=== PATIENT | female | born 1990 | race Caucasian/White ===

== ENCOUNTER 2023-03-06 15:47 | Outpatient (CLI) | payer OTHER, SELFPAY | END 2023-03-06 15:48 | disposition home or self-care (01) | PROVIDERS: Visit Provider Physician Assistant | DX: Z34.91 Encounter for supervision of normal pregnancy, unspecified, first trimester (principal); Z3A.10 10 weeks gestation of pregnancy | CPT/HCPCS: 86787; 87086 ==

== ENCOUNTER 2023-03-14 09:55 | Outpatient (CLI) | payer OTHER, SELFPAY | END 2023-03-14 09:56 | disposition home or self-care (01) | LOC: NFLDREF 03-15 04:35 | PROVIDERS: Visit Provider Physician Assistant | DX: Z34.90 Encounter for supervision of normal pregnancy, unspecified, unspecified trimester (principal) | CPT/HCPCS: 86850; 86900; 86901 ==

== ENCOUNTER 2023-05-16 12:17 | Outpatient (CLI) | payer OTHER, SELFPAY ==
--- NOTE | 2023-05-16 12:15 | CRLHL7_ITS ---
For Patients: As a result of the Century Cures Act, medical imaging exams and procedure reports are released immediately into your electronic medical record. You may view this report before your referring provider. If you have questions, please contact your health care provider. INDICATION: anatomy. Twenty week 2 day gestation by clinical dates TECHNIQUE: Real time domínguez scale imaging of the fetus was performed. COMPARISON: None FINDINGS: There is a mendez gestation in variable presentation. Amniotic fluid is normal . Single deepest vertical pocket: 5.9 cm. heart rate of 157 beats per minute. Cervical length is 4.0 cm. Placenta is anterior. /ANATOMIC SURVEY (Normal, Abnormal or Unobserved) Lateral ventricles: Normal Posterior fossa: Normal Face: Normal Profile: Normal Spine: Suboptimally visualized Four chamber heart: Suboptimally visualized Diaphragm: Normal Stomach: Normal Kidneys: Normal Bladder: Normal Cord insertion: Normal Three vessel cord: Normal Four extremities: Normal BIOMETRY DATA: BPD is 4.6 cm 19 weeks 6 days. Head circumference is 18.0 cm 20 weeks 3 days. Abdominal circumference is 15.0 cm 20 weeks to days. Femur length is 3.5 cm 20 weeks 6 days. Head/abdomen ratio is 1.19. Estimated weight is 360 grams. Percentile 60%. Gestational age by ultrasound 20 weeks 2 days. Estimated date of delivery by ultrasound 10/01/2023. IMPRESSION: 1. Measurements are consistent with dates. 2. Heart and spine suboptimally visualized. Recommend follow-up in 2-3 weeks. 3. Otherwise normal anatomic survey. Dictated by Pool Rosenberg MD @ 05/16/2023 3:25:50 PM (Electronically Signed)
== END 2023-05-16 12:18 | disposition home or self-care (01) ==
LOC: US 12:18
PROVIDERS: Visit Provider Obstetrics & Gynecology
DX: Z34.92 Encounter for supervision of normal pregnancy, unspecified, second trimester (principal); Z3A.20 20 weeks gestation of pregnancy
CPT/HCPCS: 76805; 81513; 87481; 87661

== ENCOUNTER 2023-05-23 11:30 | Outpatient (RCR) | payer OTHER, SELFPAY | END 2023-08-29 10:05 | disposition home or self-care (01) | PROVIDERS: Visit Provider Physician Assistant | DX: N81.9 Female genital prolapse, unspecified (principal); Z51.89 Encounter for other specified aftercare | CPT/HCPCS: 97110; 97112; 97161; 97535 ==

== ENCOUNTER 2023-05-25 14:30 | Outpatient (CLI) | payer OTHER, SELFPAY | END 2023-05-25 14:31 | disposition home or self-care (01) | LOC: NFLDREF 05-29 11:32 | PROVIDERS: Visit Provider Obstetrics & Gynecology | DX: N39.0 Urinary tract infection, site not specified (principal) | CPT/HCPCS: 87086 ==

== ENCOUNTER 2023-05-30 12:58 | Outpatient (CLI) | payer OTHER, SELFPAY ==
--- NOTE | 2023-05-30 13:00 | CRLHL7_ITS ---
For Patients: As a result of the Century Cures Act, medical imaging exams and procedure reports are released immediately into your electronic medical record. You may view this report before your referring provider. If you have questions, please contact your health care provider. INDICATION: f/u images of spine and heart views. COMPARISON: 05/16/2023 TECHNIQUE: Real time domínguez scale imaging of the fetus was performed. FINDINGS: Sonographic imaging demonstrates a single living intrauterine gestation. Fetus demonstrates a regular cardiac rate of 152 beats per minute. Fetus has a meagan breech position. The placenta lies anteriorly. Amniotic fluid volume appears normal. Single deepest vertical pocket: 6.4 cm. The cervical, thoracic and lumbar spine are well visualized and appear normal. There is a normal four-chamber heart view and the left and right ventricular outflow tracts appear normal. IMPRESSION: Normal spine and heart. Dictated by Carlos Quiros MD @ 05/30/2023 1:52:59 PM (Electronically Signed)
== END 2023-05-30 12:59 | disposition home or self-care (01) ==
LOC: US 12:59
PROVIDERS: Visit Provider Obstetrics & Gynecology
DX: O35.FXX0 Maternal care for other (suspected) fetal abnormality and damage, fetal musculoskeletal anomalies of trunk, not applicable or unspecified (principal); O36.8390 Maternal care for abnormalities of the fetal heart rate or rhythm, unspecified trimester, not applicable or unspecified
CPT/HCPCS: 76816

== ENCOUNTER 2023-07-11 11:18 | Outpatient (CLI) | payer OTHER, SELFPAY | END 2023-07-11 11:19 | disposition home or self-care (01) | LOC: NFLDREF 07-23 08:24 | PROVIDERS: Visit Provider Obstetrics & Gynecology | DX: Z34.93 Encounter for supervision of normal pregnancy, unspecified, third trimester (principal) | CPT/HCPCS: 86592 ==

== ENCOUNTER 2023-07-20 10:36 | Outpatient (CLI) | payer OTHER, SELFPAY | END 2023-07-20 10:37 | disposition home or self-care (01) | LOC: NFLDREF 10:37 | PROVIDERS: Visit Provider Obstetrics & Gynecology | DX: O26.893 Other specified pregnancy related conditions, third trimester (principal); N89.8 Other specified noninflammatory disorders of vagina; Z3A.29 29 weeks gestation of pregnancy | CPT/HCPCS: 87086 ==

== ENCOUNTER 2023-07-25 12:07 | Outpatient (CLI) | payer OTHER, SELFPAY ==
--- NOTE | 2023-07-25 12:15 | US_ITS ---
Patient: NORA COOLEY Facility:?[facility] Patient ID:?[id number] Site Patient ID:?[id number]. Site :?1990 Study:?US-OB Pelvis OB F/U GROWTH-07/25/2023 1:04:48 PM Ordering Physician:CLARI PARKER M.D. Final Report: INDICATION: Uterine size/date discrepancy. COMPARISON: Ob ultrasound May 16, 2023. Technique: Transabdominal OB ultrasound. Findings: Single viable intrauterine gestation of 30 weeks and 1 day duration with an expected date of delivery October 02, 2023. heart rate 173 beats per minute and regular. The estimated weight 1571 g at 42nd percentile. The largest amniotic fluid pocket measures 4.3 cm in depth. position is vertex. Placenta is anterior with no previa. BPD 7.4 cm, head circumference 28 cm and abdominal circumference 26.8 cm. Impression: 1. Single viable intrauterine gestation of 30 weeks and 1 day duration with an expected date of delivery 10/02/2023. 2. heart rate 173 beats per minute and regular. 3. Estimated weight 1571 g at the 42nd percentile. Dictated by Sherri Ruth MD @ 07/26/2023 8:18:35 AM Signed by:?Sherri Ruth MD @07/26/2023 8:18:35 AM (Electronic Signature)
== END 2023-07-25 12:08 | disposition home or self-care (01) ==
LOC: US 12:08
PROVIDERS: Visit Provider Obstetrics & Gynecology
DX: O26.843 Uterine size-date discrepancy, third trimester (principal); Z3A.30 30 weeks gestation of pregnancy
CPT/HCPCS: 76816

== ENCOUNTER 2023-09-05 11:24 | Outpatient (CLI) | payer OTHER, SELFPAY ==
[2023-09-06 15:30] LABS: Strep B DNA Probe Negative (Negative)
[2023-09-06 18:01] LABS: Strep B Susceptibility Needed? No
== END 2023-09-05 11:25 | disposition home or self-care (01) ==
LOC: NFLDREF 11:24
PROVIDERS: PCP Physician Assistant; Visit Provider Physician Assistant
DX: Z34.83 Encounter for supervision of other normal pregnancy, third trimester (principal)
CPT/HCPCS: 87081; 87653

== ENCOUNTER 2023-09-14 12:50 | Outpatient (CLI) | payer OTHER, SELFPAY ==
--- NOTE | 2023-09-14 13:00 | US_ITS ---
Patient: NORA COOLEY Facility:?[facility] Patient ID:?[id number] Site Patient ID:?[id number]. Site :?1990 Study:?US-OB Pelvis growth-09/14/2023 1:27:24 PM Ordering Physician:Keila Macedo Final Report: INDICATION: Uterine size and date discrepancy. TECHNIQUE: Ultrasound OB pelvis transabdominal. Real-time domínguez-scale imaging of the fetus was performed as well as color Doppler and spectral Doppler analysis of the umbilical artery. COMPARISON: July 25, 2023. FINDINGS: Single living intrauterine gestation. heart rate: 141 beats per minute. Presentation: Cephalic. Placenta: Anterior. Amniotic fluid deepest pocket: 6 cm. The following biometric measurements were obtained: Biparietal diameter: 35 weeks 4 days. Head circumference: 38 weeks 3 days. Abdominal circumference: 36 weeks 0 days. Femur length: 36 weeks 3 days. Ultrasound age: 36 weeks 4 days. FATOUMATA by US: October 08, 2023. EFW: 2919 Grams, 28th %. IMPRESSION.: Viable intrauterine . No abnormalities seen. Fetus is measuring at the 28th percentile by estimated weight. Dictated by Abraham Bone MD @ 09/16/2023 10:37:59 AM Signed by:?Abraham Bone MD @09/16/2023 10:37:59 AM (Electronic Signature)
== END 2023-09-14 12:51 | disposition home or self-care (01) ==
LOC: US 12:50
PROVIDERS: Visit Provider Obstetrics & Gynecology
DX: O26.843 Uterine size-date discrepancy, third trimester (principal); Z3A.36 36 weeks gestation of pregnancy
CPT/HCPCS: 76816

== ENCOUNTER 2023-10-02 07:04 | Inpatient (IN) | payer OTHER, SELFPAY ==
[2023-10-02] VITALS (34 sets, daily range): BP systolic 97–139; BP diastolic 51–88; PULSE 73–126; RESP 16–17; TEMP 36.5–36.8; O2SAT 98–100; BMI 42.7
--- OUTSIDE RECORDS SUMMARY | 2023-10-02 07:07 | XMS_ITS | Clinical Summary ---
Author Organization [facility] Address [address] [place] [address] Care Team Providers Care Engineering Test Mechanic Name Role Phone Elsewhere, Pcp Primary Care Provider Unavailabl e Source Comments Patient records contain information from all sites at [facility]. For routine questions regarding patient records, call [phone] during business hours, M-F 8:00 AM - 5:00 PM Central Time. Record requests for emergency care only can be directed to [phone] at any time.[facility] Allergies Active Allergy Reactions Criticality Noted Date Comments No Known Allergies Other (see comments) 011 Medications Medication Sig Dispensed Refills Start Date End Date Status fluticasone propionate (FLONASE) 50 mcg/actuation nasal spray Administer 2 sprays into each nostril daily. 16 g 11 12/03/2018 Active azelastine (ASTELIN) 137 mcg/spray (0.1 %) nasal spray Administer 2 sprays into each nostril 2 (two) times a day. Use in each nostril as directed 30 mL 11 12/03/2018 Active omeprazole (PriLOSEC) [address] capsule Take 1 capsule (40 mg total) by mouth every morning before breakfast. 30 capsule 11 01/06/2019 Active ferrous sulfate 325 mg (65 mg iron) DR tablet Take 1 tablet (65 mg of iron total) by mouth daily. 30 tablet 2 12/17/2019 Active Additional Information Patient not taking.Reported on 04/26/2020 norethindrone (MICRONOR) 0.35 mg tablet Take 1 tablet by mouth daily. 02/29/2020 Active omeprazole (PriLOSEC OTC) 20 mg EC tablet Take 1 tablet (20 mg total) by mouth daily. 30 tablet 5 03/11/2020 Active vgwyguk-Nq-ikic-FA 27 mg iron- 1 mg tablet Take 1 tablet by mouth daily. Active oxyCODONE (ROXICODONE) 5 mg/5 mL solutionIndication s:Prolonged Acute Pain/Traumatic Injury Take 5 mL (5 mg total) by mouth every 4 (four) hours as needed for severe pain or score 7-10 of 10 Indication: Prolonged Acute Pain/Traumatic Injury. Use only if pain not controlled despite use of tylenol and ibuprofen. 250 mL 03/22/2020 Active Additional Information Patient not taking.Reported on 04/26/2020 ibuprofen (ADVIL,MOTRIN) 100 mg/5 mL suspension Take 40 mL (800 mg total) by mouth every 6 (six) hours as needed for pain. Alternate with Ibuprofen and tylenol every 3 hours. 480 mL 3 03/30/2020 Active Additional Information Patient not taking.Reported on 04/26/2020 acetaminophen (TYLENOL) 160 mg/5 mL liquid Take 20 mL (640 mg total) by mouth every 6 (six) hours as needed for pain. Alternate with Ibuprofen and tylenol every 3 hours. 480 mL 3 03/30/2020 Active Additional Information Patient not taking.Reported on 04/26/2020 omeprazole (PriLOSEC) [address] capsule Take 1 capsule (20 mg total) by mouth daily. 30 capsule 11 11/10/2020 Active Active Problems Problem Noted Date Diagnosed Date Tonsillitis Chronic 03/11/2020 Overview: Added automatically from request for surgery [id number] Tonsillolithiasis 03/11/2020 Overview: Added automatically from request for surgery [id number] Tonsillitis Recurrent 03/11/2020 Overview: Added automatically from request for surgery [id number] Hypertrophy Tonsil 03/11/2020 Overview: Added automatically from request for surgery [id number] Obesity Body Mass Index 30-39.9 Adult 12/17/2019 False Labor At Or After 37 Completed Weeks Of Ge station 02/11/2018 Resolved Problems Problem Noted Date Diagnosed Date Resolved Date Hypertrophy Tonsil 04/02/2019 0 Overview: Added automatically from request for surgery [id number] Tonsillitis Chronic 04/02/2019 12/17/19 20 Overview: Added automatically from request for surgery [id number] Immunizations Name Administration Dates Next Due DTaP (Infanrix, [employer]edia) 07/24/1996,,01/22/1992,1991,1991 HepB, Unspecified 09/08/2003,05/15/2003,04/03/20 03 Influenza, Unspecified 01/04/2018,03/20/2014, MMR 01/06/1997,11/04/1992 Td (Adult), adsorbed 05/15/2003 Tdap 09/24/2019,11/20/2017 influenza vaccine quad (FLUZONE/FLUARIX) (6 months and older)(PF) 04/07/2019 Family History Medical History Relation Name Comments Breast cancer Aunt Maternal Hypertension Father Lung cancer Grandmother paternal previous smoker Relation Name Status Comments Aunt Maternal Father Grandmother paternal Social History Tobacco Use Types Packs/Day Years Used Date Smoking Tobacco: Never Smokeless Tobacco: Never Alcohol Use Standard Drinks/Week Comments No 0 (1 standard drink = 0.6 oz pur e alcohol) PHQ-2 Answer Date Recorded PHQ-2 Score 0 12/17/2019 Depression Answer Date Recor ded PHQ-9 Total Score (max 27) 2 12/16 Nutrition Answer Date Recorded Nutrition: EVOO Fat Source Unknown 06/30 Nutrition: Servings of Fruits/Vegetables per Day Not on file 06/30/2020 Dental Answer Date Recorded Dental: Regular Dentist Unknown 07/01/19 21 Sex and Gender Information Value Date Recorded Sex Assigned at Not on file Gender Identity Not on file Sexual Orientation Not on file Last Filed Vital Signs Vital Sign Reading Time Taken Comments Blood Pressure 133/83 03/22/2020 5:30 PM SCORER SINGLE Pulse 92 03/22/2020 5:45 PM SCORER SINGLE Temperature 37.1 ??C (98.8 ??F) 03/22/2020 5:45 PM CS T Respiratory Rate 15 03/22/2020 5:45 PM SCORER SINGLE Oxygen Saturation 95% 03/22/2020 5:45 PM SCORER SINGLE Inhaled Oxygen Concentration - - Weight 95.3 kg (210 lb 3.2 oz) 03/11/2020 9:35 A M SCORER SINGLE Height 160 cm (5' 2.99) 02/23/2016 8:06 AM CDT Body Mass Index 37.24 02/23/2016 8:06 AM CDT Plan of Treatment Health Maintenance Due Date Last Done Comments Cervical Cancer Screening 1991 HIV Screening 1991 Hepatitis C Screening 1991 COVID-19 Vaccine ( season) 2022 05/02/2021, 08/06/2020 Depression Screening (Annual PHQ-2) 04/30/2023 DTaP,Tdap,and Td Vaccines (10 - Td or Tdap) 07/24/2033 07/25/2023, 09/24/2019, 11/20/2017, Additional history exists Hepatitis B Vaccines Completed 09/08/2003, 05/15/2003, 04/03/2003 Influenza Vaccine Completed 02/21/2023, , 01/30/2020, Additional history exists HPV Vaccines Aged Out No longer eligi ble based on patient's age to complete this topic Pneumococcal vaccine (0-64 years) Aged Out No longer eligible based on patient's age to complete this topic Advance Directives For more information, please contact: [phone] * Full Code (Latest Code Status on File) Date Activated Date Inactivated Comments 03/22/2020 3:48 PM 03/22/2020 8:13 PM Question Answer Comments Full Code: Not Discussed Due to: Patient not available * Full Code Date Activated Date Inactivated Comments 12/15/2019 7:55 PM 12/17/2019 2:34 PM Question Answer Comments Full Code: Discussed * Full Code Date Activated Date Inactivated Comments 11/26/2019 7:44 AM 11/26/2019 12:14 PM Question Answer Comments Full Code: Not Discussed Due to: Patient not available * Full Code Date Activated Date Inactivated Comments 02/12/2018 1:51 AM 02/13/2018 4:16 PM Question Answer Comments Full Code: Discussed * Full Code Date Activated Date Inactivated Comments 02/11/2018 11:17 PM 02/12/2018 1:51 AM Question Answer Comments Full Code: Not Discussed Due to: Patient not available Care Teams Engineering Test Mechanic Relationship Specialty Start Date End Date Elsewhere, Pcp PCP - General Family Medicine 12/03/17
--- OUTSIDE RECORDS SUMMARY | 2023-10-02 07:07 | XMS_ITS | Referral Summary ---
Author Organization [facility] Address [address] [place] [address] Care Team Providers Care Supervisor Dumping Name Role Phone Elsewhere, Pcp Primary Care Provider Unavailabl e Source Comments Patient records contain information from all sites at [facility]. For routine questions regarding patient records, call [phone] during business hours, M-F 8:00 AM - 5:00 PM Central Time. Record requests for emergency care only can be directed to [phone] at any time.[facility] Allergies Active Allergy Reactions Criticality Noted Date [...] mouth daily. 30 tablet 5 03/11/2020 Active uswnxyr-Hb-bint-FA 27 mg iron- 1 mg tablet Take [...] Overview: Added automatically from request for surgery [id number] Tonsillolithiasis 03/11/2020 Overview: Added automatically from request for surgery [id number] Tonsillitis Recurrent 03/11/2020 Overview: Added automatically from request for surgery [id number] Hypertrophy Tonsil 03/11/2020 Overview: Added automatically from request for surgery [id number] Obesity Body Mass Index 30-39.9 Adult 12/17/2019 False Labor At Or After 37 Completed Weeks Of Ge station 02/11/2018 Resolved Problems Problem Noted Date Diagnosed Date Resolved Date Hypertrophy Tonsil 04/02/2019 0 Overview: Added automatically from request for surgery [id number] Tonsillitis Chronic 04/02/2019 12/17/19 20 Overview: Added automatically from request for surgery [id number] Immunizations Name Administration Dates Next Due DTaP (Infanrix, [employer]edia) 07/24/1996,,01/22/1992,1991,1991 HepB, Unspecified 09/08/2003,05/15/2003,04/03/20 03 Influenza, Unspecified 01/04/2018,03/20/2014, MMR 01/06/1997,11/04/1992 Td (Adult), adsorbed 05/15/2003 Tdap 09/24/2019,11/20/2017 influenza vaccine quad (FLUZONE/FLUARIX) (6 months and older)(PF) 04/07/2019 Social History Tobacco Use Types Packs/Day Years [...] Comments Blood Pressure 133/83 03/22/2020 5:30 PM ROLL ON WORKER Pulse 92 03/22/2020 5:45 PM ROLL ON WORKER Temperature 37.1 ??C (98.8 ??F) 03/22/2020 5:45 PM CS T Respiratory Rate 15 03/22/2020 5:45 PM ROLL ON WORKER Oxygen Saturation 95% 03/22/2020 5:45 PM ROLL ON WORKER Inhaled Oxygen Concentration - - Weight 95.3 kg (210 lb 3.2 oz) 03/11/2020 9:35 A M ROLL ON WORKER Height 160 cm (5' 2.99) 02/23/2016 8:06 AM CDT Body Mass Index 37.24 02/23/2016 8:06 AM CDT Plan of Treatment Not on file Advance Directives For more information, please contact: [phone] * Full Code (Latest Code Status on [...] Due to: Patient not available Care Teams Supervisor Dumping Relationship Specialty Start Date End Date Elsewhere, Pcp PCP - General Family Medicine 12/03/17
--- OUTSIDE RECORDS SUMMARY | 2023-10-02 07:07 | XMS_ITS ---
Author Organization [facility] Address [address] [place] [address] Care Team Providers Care Pharmacy Student Name Role Phone Unavailable Unavailable Unavailable Surgery Details Not on file Complications Check Surgery Details section. Procedure Estimated Blood Loss Check Surgery Details section. Procedure Findings Check Surgery Details section. Procedure Specimens Taken Check Surgery Details section.
--- OUTSIDE RECORDS SUMMARY | 2023-10-02 07:07 | XMS_ITS | Clinical Summary ---
Author Organization [facility] Address [place], [place] [address] Care Team Providers Care Laundrette Owner Name Role Phone Clinic, No Pcp Or Primary Care Provider Unavaila ble Allergies No known active allergies Medications Medication Sig Dispensed Refills Start Date End Date Status [place], 28, tablet Take 1 Tablet by mouth once daily. 06/01/2022 Active buPROPion (WELLBUTRIN XL) 150 mg Extended-Release tablet Take 150 mg by mouth once daily. 05/17/2022 Active omeprazole (PRILOSEC) 20 mg Delayed-Release capsule Take 20 mg by mouth. 06/08/2022 Active MAGIC MOUTHWASH 1:1:1 DIPHEN/MAALOX/LIDO (AMB SPECIAL MIX)Indications:Sore throat Swish and spit 5-10 mL by mouth every 6 hours if needed (sore throat). 240 mL 07/27/2022 Active Active Problems No known active problems Immunizations Name Administration Dates Next Due COVID-19 vaccine (Moderna Delroy gloria 50mcg/0.25mL) ТАТЬЯНА SHAIKH 05/02/2021 DTaP 07/24/1996, 3,01/22/1992,1991,1991 Hepatitis B, Unspecified 09/08/2003,05/15/2003,1 06/04/2002 MMR 01/06/1997,11/04/1992 Td (Age >=7 Years) 05/15/2003 Tdap 09/24/2019,11/20/2017 Social History Tobacco Use Types Packs/Day Years Used Date Smoking Tobacco: Never Smokeless Tobacco: Never Tobacco Cessation:Counseling Given: Not Answered Alcohol Use Standard Drinks/Week Comments Not Currently 0 (1 standard drink = 0.6 oz pur e alcohol) Social Connections Answer Date Recorded Frequency of Communication with Friends and Fami ly Not on file 07/30/2023 Financial Resource Strain Answer Date R ecorded Difficulty of Paying Living Expenses 3 07/27/2022 Difficulty of Paying Living Expenses Not on file 07/27/2022 Food Insecurity Answer Date Recorded Worried About Running Out of Food in the Last Ye ar 1 07/27/2022 Transportation Needs Answer Date Record ed Lack of Transportation (Medical) 1 07/27/2022 Housing Stability Answer Date Recorded Unable to Pay for Housing in the Last Year 1 07/27/2022 Sex and Gender Information Value Date Recorded Sex Assigned at Not on file Gender Identity Not on file Sexual Orientation Not on file Obstetrics History Last Filed Vital Signs Vital Sign Reading Time Taken Comments Blood Pressure 110/82 07/27/2022 10:06 AM CDT Pulse 92 07/27/2022 10:06 AM CDT Temperature 36.9 ??C (98.4 ??F) 06/27/2022 11:[address] Respiratory Rate - - Oxygen Saturation 97% 06/27/2022 11:16 AM MEDICAL ESTHETICIAN Inhaled Oxygen Concentration - - Weight 90 kg (198 lb 8 oz) 07/27/2022 10:06 AM C DT with shoes Height - - Body Mass Index - - Plan of Treatment Health Maintenance Due Date Last Done Comments Depression screening for age 12+ 2003 HIV for age 15-65 07/16/2006 BMI (ht and wt on same day) for age 18+ 07/16/2009 Hepatitis C screening for ag e 18-79 07/16/2009 Pap test for age 21-65 07/16/2012 COVID-19 vaccine series (2022- season) 2022 05/02/2021 Influenza for age 9-49 12/30/2023 Tetanus booster 09/23/2029 09/24/2019, 11/20/2017, 05/15/2003 Tdap Completed 09/24/2019, 11/20/2017 Pneumococcal series for age 6-64 Aged Out No longer eligible b ased on patient's age to complete this topic Care Teams Laundrette Owner Relationship Specialty Start Date End Date Clinic, No Pcp Or . PCP - General 04/04/21
--- OUTSIDE RECORDS SUMMARY | 2023-10-02 07:07 | XMS_ITS | Referral Summary ---
Author Organization [facility] Address [address] [place] [address]. [place] [address] Care Team Providers Care Classroom Instructor Name Role Phone Unavailable Primary Care Provider Unavailabl e Allergies No known active allergies Medications Medication Sig Dispensed Refills Start Date End Date Status omeprazole (PRILOSEC) [address] capsule TAKE 1 CAPSULE BY MOUTH EVERY DAY 11/18/2020 Active norethindrone (MICRONOR) 0.35 MG tablet Take 1 tablet by mouth 02/29/2020 Active Vit-Fe Fumarate-FA (PNV PLUS MULTIVITAMIN) 27-1 MG TABS per tablet Take 1 tablet by mouth Active Social History Tobacco Use Types Packs/Day Years Used Date Smoking Tobacco: Never Smokeless Tobacco: Never Adolescent Education Answer Date Record ed Getting School Help Needed Not on file 01/20 Sex and Gender Information Value Date Recorded Sex Assigned at Not on file Gender Identity Not on file Sexual Orientation Not on file Last Filed Vital Signs Vital Sign Reading Time Taken Comments Blood Pressure 122/87 12/08/2020 11:44 AM CDT Pulse 83 12/08/2020 11:44 AM CDT Temperature 36.6 ??C (97.9 ??F) 12/08/2020 11:44 AM C DT Respiratory Rate - - Oxygen Saturation 99% 12/08/2020 11:44 AM CDT Inhaled Oxygen Concentration - - Weight - - Height - - Body Mass Index - - Plan of Treatment Not on file
--- OUTSIDE RECORDS SUMMARY | 2023-10-02 07:07 | XMS_ITS | Clinical Summary ---
Author Organization [facility] Address [address] [place] [address]. [place] [address] Care Team Providers Care Pet Counselor Name Role Phone Unavailable Primary Care Provider [...] Health Maintenance Due Date Last Done Comments ADVANCE CARE PLANNING 1991 ANNUAL REVIEW OF HM ORDERS 1991 YEARLY PREVENTIVE VISIT 1991 HIV SCREENING 07/16/2006 HEPATITIS C SCREENING 07/16/2009 PAP 07/16/2012 COVID-19 Vaccine ( season) 2022 PHQ-2 (once per calendar year) 2023 INFLUENZA VACCINE (Season Ended) 2023 04/07/2019, 01/04/2018, 03/20/2014, Additional history exists DTAP/TDAP/TD IMMUNIZATION (8 - Td or Tdap) 09/23/2029 09/24/2019, 11/20/2017, 05/15/2003, Additional history exists HEPATITIS B IMMUNIZATION Completed 004, 05/15/2003, 04/03/2003 HPV IMMUNIZATION Aged Out No longer e ligible based on patient's age to complete this topic IPV IMMUNIZATION Aged Out No longer e ligible based on patient's age to complete this topic MENINGITIS IMMUNIZATION Aged Out No l onger eligible based on patient's age to complete this topic Pneumococcal Vaccine: Pediatrics (0 to 5 Years) and At-Risk Patients (6 to 64 Years) Aged Out No longer eligible based on patient's age to complete this topic RSV MONOCLONAL ANTIBODY Aged Out No l onger eligible based on patient's age to complete this topic
[2023-10-02] MEDS: LACTATED RINGERS 1000 ML 1,000 ML 125 ML IV ×2 (08:26→15:27)
[2023-10-02] MEDS: OXYTOCIN 30 unit/500 ML in NS 30 UNIT/500 ML BAG IVPB (08:27)
--- NOTE | 2023-10-02 08:32 | P.LDBA_ITS ---
Subjective History of Present Illness Date Seen: 10/02/23 Narrative: Patient is being admitted to Labor and Delivery for elective IOL. She is a 33 year old at 40 weeks, 1 day gestation. Her full history and physical was dictated by Dr. Kaye on 09/11/23. Please see this for details. Specific Issues/Plans -1-0-[address] Kaye 09/11/2023 Transfer at 10 weeks and 1 day 1. History of delivery with the 1st , 36 + 3. 2. GERD, omeprazole 3. First OB labs 02/21/2023: Positive antibody screen, awaiting identification: F/u testing was negative Repeated antibody screen here: negative 4. Asymptomatic bacteriuria at 1st OB Repeat urine culture: <10 K gram positive marj 5. Obesity, BMI 38.0 Hemoglobin A1c 5.3% 6. Uterine prolapse noted at 1st OB visit. PT referral. 7. Considering sterilization. Tubal consent form signed 07/11/23. - Fully discussed male and female sterilization options on 07/24, considering all options further - 09/18: Plans vasectomy 8. Hx PCOS with heavy bleeding; regular menses in recent history. TDAP: 07/24 First OB labs 02/21/2023 O positive, positive antibody screen, hemoglobin 12.9, platelets 238, rubella immune, RPR nonreactive, hepatitis-B surface antigen negative, HIV negative, gonorrhea and Chlamydia negative, hep C negative. Reported asymptomatic bacteriuria. TSH 1.12 Last Pap 06/22/2021:NIL Imaging: [facility]-rump length 1.7 cm. heart rate 173. FATOUMATA 10/02/2023 05/16/2023: Normal fluid, anterior placenta, EFW 60%, unable to visualize spine and heart, otherwise normal anatomy 05/30/2023: Normal spine and heart 07/26/2023: 30 weeks. EFW 42%, SDP 4.3 cm. Cephalic. Anterior placenta. No previa. GBS 09/05/23 OB - Problem Based A/P Additional Plan (1) : Status: Acute Plan elective IOL at term Begin with pitocin, AROM with regular contractions OB Exam Physical Exam Vital signs: Temp Pulse Resp BP 98.3 F 98 16 119/79 10/02/23 07:48 10/02/23 07:48 10/02/23 07:48 10/02/23 07:48 Narrative: Physical exam: General: No acute distress Psych: Alert and oriented x3, full affect HEENT: Normocephalic, atraumatic Heart: Regular rate and rhythm, no murmur rub or gallop Lungs: Clear to auscultation bilaterally Abdomen: soft, nontender, gravid, cephalic Lower extremities: No edema or erythema Pelvic exam: cervical exam yesterday: 3 / 50 % tracing: Baseline 135 / accelerations present / no decelerations / moderate variability.
[2023-10-02 08:45] LABS: Basophils Absolute Auto 0.03 K/uL (0.00-0.30); Basophils Percent Auto 0.3 % (0.0-3.0); Eosinophils Absolute Auto 0.16 K/uL (0.00-0.50); Eosinophils Percent Auto 1.8 % (0.0-7.0); Hematocrit 35.1 % (33.0-51.0); Hemoglobin* 11.9 gm/dL (12.0-16.0); Immature Granulocytes Abs Auto 0.02 K/uL (0.00-0.30); Immature Granulocytes Pct Auto 0.2 %; Lymphocytes Absolute Auto 1.76 K/uL (0.90-2.90); Lymphocytes Percent Auto 20.2 % (20-44); Mean Corpuscular HGB Conc 34 gm/dL (32-36); Mean Corpuscular Hemoglobin 31 pg (26-34); Mean Corpuscular Volume 92 fL (80-100); Monocytes Percent Auto 7.1 % (0.0-11.0); Neutrophils Absolute Auto 6.12 K/uL (1.7-7.0); Neutrophils Percent Auto 70.4 % (42.0-72.0); Platelet Count* 202 K/uL (140-440); RDW Coefficient of Variation % 12.9 % (11.5-15.5); Red Blood Count 3.82 m/uL (4.00-5.20); White Blood Count* 8.71 K/uL (4.50-11.00)
[2023-10-02 08:46] LABS: Slide Review Reflex No
[2023-10-02] MEDS: ROPIVACAINE 0.2% 100 ml 100 ML 12 MG EPIDURAL (15:19)
[2023-10-02] MEDS: ROPIVACAINE 0.2 % PF 10 ML INJ 20 MG EPIDURAL (15:21)
--- NOTE | 2023-10-02 15:28 | PM.ANBPRCMDA ---
[facility] Medical History (Updated 09/11/23 @ 11:55 by Keila Kaye MD) UTI (urinary tract infection) ?N39.0 - Urinary tract infection, site not specified (ICD-10) Hidradenitis suppurativa ?L73.2 - Hidradenitis suppurativa (ICD-10) PCOS (polycystic ovarian syndrome) ?E28.2 - Polycystic ovarian syndrome (ICD-10) History of depression ?Z87.59 - Personal history of other complications of , childbirth and the puerperium (ICD-10) ?Z86.59 - Personal history of other mental and behavioral disorders (ICD-10) Surgical History History of tonsillectomy ?Z90.89 - Acquired absence of other organs (ICD-10) Family History Mother High blood pressure Father High blood pressure High cholesterol Diabetes Paternal Grandmother Lung cancer High blood pressure Aunt Breast cancer Uncle Diabetes Uncle Prostate cancer Social History (Updated 09/11/23 @ 11:56 by Keila Kaye MD) Narrative: Lives in [place] with and 3 kids. History of blood transfusion: No. SOCIAL HISTORY: Occupation: [id number]. Marital status: . Jewish/cultural needs: no. Chemical or radiation exposure: no. Pre- tobacco use: no. Pre- alcohol use: no. Current tobacco use: no. Current alcohol use: no. Recreational drug use: no. Dietary restrictions: no. Blood transfusion acceptable in an emergency: yes. PSYCHOSOCIAL HISTORY: History of depression or currently depressed: History of depression. Current or past physical, emotional, or sexual mistreatment: no. Problems that will make it hard to make it to appointments: no. What is your current living situation?: I presently have a place to live Problems where you live: no known problems In the past 12 months, utilities in danger of being shut off: no In past 12 months, lack of transportation kept you from medical appts, meetings, work, or getting things needed for daily living: no How hard is it for you to pay for the very basics like food, housing, medical care, and heating: not very hard In the past 12 mos, have been you worried that your food would run out before you had money to buy more?: never true In the past 12 mos, the food you bought just didn't last and you didn't have money to buy more?: never true Smoking Status: Never smoker How often does anyone, including family, friends and others, physically hurt you: never How often does anyone, including family, friends and others, insult or talk down to you: never How often does anyone, including family, friends and others, threaten you with harm: never How often does anyone, including family, friends and others, scream or curse at you: never Little interest or pleasure in doing things: not at all Feeling down, depressed, or hopeless: not at all Meds Home Medications and Allergies Home Medications ?Medication ?Instructions ?Recorded ?Confirmed ?Type docosahexaenoic acid 200 mg 200 mg PO 03/06/23 10/01/23 History capsule ( DHA) Allergies Allergy/AdvReac Type Severity Reaction Status Date / Time No Known Drug Allergies Allergy Verified 10/02/23 07:30 Results Labs Labs: Laboratory Results - last 24 hr 10/02/23 08:27 WBC 8.71 RBC 3.82 L Hgb 11.9 L Hct 35.1 MCV 92 MCH 31 MCHC 34 RDW Coeff of Esvin 12.9 Plt Count 202 Neut % (Auto) 70.4 Lymph % (Auto) 20.2 Real % (Auto) 7.1 Eos % (Auto) 1.8 Baso % (Auto) 0.3 Neut # (Auto) 6.12 Lymph # (Auto) 1.76 Real # (Auto) 0.60 Eos # (Auto) 0.16 Baso # (Auto) 0.03 Abs Immat Gran (auto) 0.02 Imm/Tot Granulo (auto) 0.2 Blood Type O Positive Antibody Screen NEGATIVE Vital Signs Vital Signs: Last Vital Signs Temp 97.8 F 10/02/23 14:03 Pulse 100 10/02/23 15:24 Resp 17 10/02/23 14:03 BP 105/63 10/02/23 15:24 Pulse Ox 100 10/02/23 15:14 Weight: 106.141 kg Height: 157.48 cm Anesthesia Procedures - MDA Epidural Insertion Patient Location: OB Start Time: 14:58 Stop Time: 15:28 Start Date: 10/02/23 Stop Date: 10/02/23 Reason for Block: primary anesthetic Patient Position: sitting Performed By: Feliberto Richardson Preanesthetic Checklist: IV checked, risks and benefits discussed, surgical consent, monitors and equipment checked, pre-op evaluation, timeout performed and anesthesia consent Prep: chlorhexidine gluconate Monitoring: blood pressure monitoring, monitoring coordinator, continuous pulse oximetry and heart rate Approach: midline Vertebral Space: lumbar (1-5) Needle Type: Tuohy needle Injection Technique: continuous catheter (catheter) Needle gauge: 17 Needle Length (cm): 10 cm Needle Insertion Depth (cm): 7 Catheter Gauge: 19 Catheter Type: multi-orifice Catheter at skin depth (cm): 13 Test Dose Result: negative and lidocaine 1.5% with epinephrine 1 to 200,000
--- NOTE | 2023-10-02 16:36 | W.PM.VAGDEL1 ---
Procedure Delivery date: 10/02/23 Procedure Done: Global Procedure Details: The patient is a 33 year-old woman admitted on 10/02/23 at 40 Weeks, 1 Days gestation for elective IOL.? Cervical exam on day prior to admission was 3 cm / 50 % effaced with membranes intact in vertex presentation.? heart rate demonstrated baseline 135 bpm with moderate variability, positive accelerations, no decelerations; a category 1 tracing.? AROM occurred at 1159 AM with clear fluid. ? Labor Analgesia:? epidural ? Pitocin:? yes ? Labor onset:? 2:55 PM ? Complete:? 4:09 PM ? Pushing:? 4:14 PM ? heart tones during second stage were reassuring. ? At 4:22 PM a viable female delivered in vertex OA presentation over intact perineum via spontaneous vaginal delivery.? Infant was placed on maternal abdomen.? Cord was clamped and cut after a greater than 60 second delay.? Nose and mouth were bulb suctioned.? weight pending.? 9 at 1 minute and 9 at 5 minutes.? Shoulder dystocia: no.? Nuchal cord: no ? Placenta delivered spontaneously and complete at 4:32 PM with a 3 vessel cord. ? Mother and were stable after delivery. ? Lacerations:?none ? Blood loss: 50 mL. Blood loss measurement type: EBL ?
[2023-10-02] MEDS: IBUPROFEN 600 MG TABLET PO (23:45)
[2023-10-03 03:00] VITALS: BP 122/83; PULSE 72; RESP 16; TEMP 36.6; O2SAT 97
[2023-10-03 06:36] LABS: Hemoglobin* 11.9 gm/dL (12.0-16.0)
[2023-10-03] MEDS: IBUPROFEN 600 MG TABLET PO ×2 (07:53→16:24)
[2023-10-03 08:00] VITALS: BP 113/77; PULSE 76; RESP 16; TEMP 36.4
--- NOTE | 2023-10-03 08:32 | PM.OBDSVD1 ---
DS: Providers Provider Time Seen by Provider: 08:32 Date Seen: 10/03/23 Date of admission: 10/02/23 07:04 Primary care physician: Not a Local Provider Admitting Clinician: Keila Kaye MD Attending Physician on discharge: Keila Kaye MD Date of Discharge: 10/03/23 DS: Diagnosis Discharge Diagnosis (1) Lactating mother: Status: Acute (2) care following vaginal delivery: Status: Acute Exam Narrative: Exam Narrative: GENERAL APPEARANCE:? normal affect, alert, no distress? MOOD:? appropriate? CHEST:? clear to auscultation and percussion? HEART:? regular rate and rhythm? ABDOMEN:? soft, non-tender the uterine fundus is U/2 and is appropriate for the stage of recovery.? PERINEUM:? mild edema of the perineum, there is a intact perineum that is healing well.? EXTREMITIES:? normal and no edema? Const: Vital Signs, click to edit/add: Vital Signs - 24 hr 10/02/23 09:33 10/02/23 10:14 10/02/23 10:19 Temperature Pulse Rate 73 Pulse Rate [Pulse Oximeter] Respiratory Rate Blood Pressure 118/70 Blood Pressure [Le ft Arm] Pulse Oximetry 98 98 [facility] 10:26 10/02/23 10:26 10/02/23 11:38 Temperature 98.2 F Pulse Rate 85 79 Pulse Rate [Pulse Oximeter] Respiratory Rate 16 Blood Pressure 129/76 123/75 Blood Pressure [Le ft Arm] Pulse Oximetry Oxygen Delivery Md thod 10/02/23 13:06 10/02/23 13:06 10/02/23 14:01 Temperature 97.7 F Pulse Rate 81 96 Pulse Rate [Pulse Oximeter] Respiratory Rate 16 Blood Pressure 133/77 131/79 Blood Pressure [Le ft Arm] Pulse Oximetry [facility] 10/[facility]/23 14:03 10/02/23 15:09 10/02/23 15:10 Temperature 97.8 F Pulse Rate 99 Pulse Rate [Pulse Oximeter] Respiratory Rate 17 Blood Pressure 124/83 Blood Pressure [Le ft Arm] Pulse Oximetry 100 Oxygen Delivery Md thod 10/02/23 15:12 10/02/23 15:14 10/02/23 15:15 Temperature Pulse Rate 93 100 Pulse Rate [Pulse Oximeter] Respiratory Rate Blood Pressure 133/88 132/78 Blood Pressure [Le ft Arm] Pulse Oximetry 100 Oxygen Delivery Md thod 10/02/23 15:19 10/02/23 15:21 10/02/23 15:24 Temperature Pulse Rate 101 H 100 100 Pulse Rate [Pulse Oximeter] Respiratory Rate Blood Pressure 114/62 105/63 105/63 Blood Pressure [Le ft Arm] Pulse Oximetry Oxygen Delivery Md thod 10/02/23 15:28 10/02/23 15:30 10/02/23 15:38 Temperature 97.8 F Pulse Rate 101 H 95 Pulse Rate [Pulse Oximeter] Respiratory Rate 17 Blood Pressure 105/62 139/88 Blood Pressure [Le ft Arm] Pulse Oximetry [facility] 10/[facility]/23 15:41 10/02/23 15:45 10/02/23 16:31 Temperature Pulse Rate 94 86 96 Pulse Rate [Pulse Oximeter] Respiratory Rate Blood Pressure 107/62 114/67 101/51 L Blood Pressure [Le ft Arm] Pulse Oximetry [facility] 10/02/23 16:31 10/02/23 16:46 10/02/23 16:46 Temperature 97.7 F Pulse Rate 99 Pulse Rate [Pulse Oximeter] Respiratory Rate 16 16 Blood Pressure 106/57 L Blood Pressure [Le ft Arm] Pulse Oximetry [facility] 10/02/23 17:01 10/02/23 17:01 10/02/23 17:16 Temperature Pulse Rate 120 H 88 Pulse Rate [Pulse Oximeter] Respiratory Rate 16 Blood Pressure 108/58 L 97/54 L Blood Pressure [Le ft Arm] Pulse Oximetry [facility] 10/02/23 17:16 10/02/23 17:32 10/02/23 17:32 Temperature Pulse Rate 86 Pulse Rate [Pulse Oximeter] Respiratory Rate 16 16 Blood Pressure 109/58 L Blood Pressure [Le ft Arm] Pulse Oximetry [facility] 10/02/23 17:46 10/02/23 17:46 10/02/23 18:00 Temperature Pulse Rate 126 H Pulse Rate [Pulse Oximeter] Respiratory Rate 16 16 Blood Pressure 104/62 Blood Pressure [Le ft Arm] Pulse Oximetry [facility] 10/02/23 18:01 10/02/23 18:15 10/02/23 18:16 Temperature 98.3 F Pulse Rate 93 88 Pulse Rate [Pulse Oximeter] Respiratory Rate 16 Blood Pressure 109/71 111/57 L Blood Pressure [Le ft Arm] Pulse Oximetry Oxygen Delivery Me thod 10/02/23 18:28 10/02/23 23:00 10/03/23 03:00 Temperature 98 F 97.9 F Pulse Rate 105 H Pulse Rate [Pulse Oximeter] 76 72 Respiratory Rate 16 16 Blood Pressure 116/68 Blood Pressure [Le ft Arm] 133/86 122/83 Pulse Oximetry 98 97 Oxygen Delivery Me thod Room Air Room Air OB - DS: Summary Hospital Course Hospital Course: Juana is a 33 year old G 4 P 4 at 40.1 weeks gestation that was admitted to the Center on 10/02/23 for elective IOL. She had an uncomplicated vaginal delivery. She delivered a viable female . She is breast feeding and it is going great. the patient has done well. Her pain is well controlled with current medications.? She has no new complaints.? Urinary output is adequate and she is voiding without difficulty.? Has a good appetite, is tolerating a general diet, is passing flatus, and has not had a bowel movement.? Has scant amount of rubra lochia.? She is ambulating well. Her partner is planning a vasectomy but plans to use the mini pill until testing is completed. Peripartum Data delivery method: Vaginal Laceration description: None Episiotomy description: None complications: none Infant Gender: Female Discharge Plan: Home Status at Discharge Functional status at discharge: independent ambulation Overall status at discharge: patient is progressing back to baseline Time Spent with Patient Time attestation: Total time spent providing and/or coordinating discharge services: Discharge Plan Discharge Disposition: Home, Self-Care Date of Admission: 10/02/23 07:04 Attending Provider on Discharge: Clementine Martínez Primary Care Provider: Provider,Not a Local Condition: Stable Anticipated Discharge Date/Time: 10/03/23 18:00 Discharge Medications: New docusate sodium 100 mg Capsule 100 mg PO DAILY Qty: 90 0RF Rx Instructions: Take 1-2 tablets daily as needed for constipation. ibuprofen 600 mg Tablet 600 mg PO Q6H PRNQty: 30 0RF Continued omeprazole 20 mg capsule,delayed release(DR/EC) 20 mg PO DAILY Qty: 30 2RF DHA 200 mg capsule 200 mg PO Discharge Orders: Discharge Order (Routine); Ordered 10/03/23 Ordered By: Clementine Martínez Patient Education: OB Vaginal/Breast Feeding Additional Instructions: Discharge instructions were reviewed with the patient including signs and symptoms of infection and home going medications.? Lifting Restrictions: 20 pounds for 6? weeks? ?? Do not drive while taking narcotic pain meds.? Off Work or School for 6 weeks.? ?? Symptoms to report to doctor:? -Bleeding that saturates more than one pad per hour? -Passing clots larger than the size of a golf ball? -Pain not relieved by prescribed medication? -Fever above 100.4 degrees Fahrenheit? -A foul vaginal odor? -Difficulty in emotions, mood and functions? -Thoughts of hurting yourself and/or ? -Painful, reddened area in your breast? -Any drainage, redness or tenderness in your IV/epidural site? -Severe headache that doesn't improve after taking medications? -Changes in vision, including temporary loss of vision, blurred vision, and/or light sensitivity? -Upper abdominal pain (usually under ribs on the right side)? -Decrease in urination or painful, frequent urinating? -Chest pain? -Shortness of breath? -Tenderness or pain with redness and/swelling in the calf(s) of your leg? ?? Follow Up in clinic in 2 and 6 weeks.? ?? consultation services are available to all mothers and babies for the first year after delivery.? To make an appointment, please call [phone].? Activity Level: Activity as Tolerated Follow Up Appointments: Provider,Not a Local [Primary Care Provider] - [facility] [Provider Group] Forms: Informative Info Instructions
[2023-10-03 12:16] VITALS: BP 114/78; PULSE 92; RESP 16; TEMP 36.7; O2SAT 97
--- NOTE | 2023-10-03 12:51 | PM.ANPOST ---
Post Anesthesia Note Post Anesthesia Note Patient seen: Inpatient Respiratory Status: adequate Cardiovascular Status: adequate Mental Status: baseline Pain: adequate Temp: baseline Anesthetic awareness: N/A Complications: none Follow care: none
[2023-10-03 16:00] VITALS: BP 122/85; PULSE 84; RESP 16; TEMP 36.9; O2SAT 97
[2023-10-04 00:11] LABS: Rapid Plasma Reagin (RPR) Non Reactive (Non Reactive)
== END 2023-10-03 18:05 | disposition home or self-care (01) | DRG 807 ==
PROVIDERS: Admitting Provider Obstetrics & Gynecology; Visit Provider Obstetrics & Gynecology
DX: O99.214 Obesity complicating childbirth (principal); Z37.0 Single live birth; K21.9 Gastro-esophageal reflux disease without esophagitis; Z3A.40 40 weeks gestation of pregnancy
CPT/HCPCS: 01967; 36415; 85018; 85025; 86592; 86850; 86900; 86901; A9270; J2371; J2795; J7120